=== PATIENT | male | born 2000 | race Two or more races ===

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

== ENCOUNTER 2020-09-04 15:28 | Emergency (ER) | payer MEDICAID ==
[~2020-09-04] VITALS: Ht 177.8 cm; Wt 113.4 kg
[~2020-09-04 15:28] MED LIST changes: +HYDROCODON-ACE1 EA15 ORAL
--- NOTE | 2020-09-04 15:48 | Emergency Room Report ---
History of Present Illness General Chief Complaint: General Complaint Source: Patient Present Illness HPI 20-year-old male presents to the emergency department requesting medical screening exam as he had exposure to a patient who was hospitalized 2 days ago for COVID-19 infection. Patient reports he has been taking care of his mother at home for the past 3 weeks to just yesterday needed to be hospitalized. Patient reports history of asthma he states he has been out of his inhaler for months. He denies cough, wheezing, shortness of breath, body aches or headaches. Patient reports he did feel hot on several occasions but did not measure temperature. He denies chills. Patient denies any other significant past medical history. He denies smoking history. Patient reports that he has been home with his brother and has not been going out anywhere in public. 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 COVID-19 Screening: PUI COVID-19 COVID-19 Testing Source: nasal Patient History Past Medical History: see triage record, asthma Past Surgical History: none Pertinent Family History: none Reviewed Nursing Documentation: PMH: Agreed; PSxH: Agreed Nursing Documentation-PMH Past Medical History: No Stated History Hx Cardiac Problems: No Review of Systems All Other Systems: negative except mentioned in HPI Physical Exam Vital Signs Date Time Temp Pulse Resp B/P (MAP) Pulse Ox O2 Delivery O2 Flow Rate FiO2 09/04/20 15:44 98.8 81 16 129/86 (100) 98 Room Air Sp02 EP Interpretation: reviewed, normal General Appearance: no apparent distress, alert, GCS 15, non-toxic Head: normocephalic, atraumatic Eyes: bilateral eye normal inspection, bilateral eye PERRL ENT: hearing grossly normal, normal voice, uvula midline, moist mucus membranes Neck: full range of motion, no meningismus Respiratory: chest non-tender, lungs clear, normal breath sounds, no rhonchi, no respiratory distress, no accessory muscle use, no wheezing, speaking full sentences Cardiovascular #1: regular rate, rhythm, normal capillary refill Cardiovascular #2: 2+ radial (R) Gastrointestinal: non tender, soft Musculoskeletal: normal range of motion, gait/station normal, non-tender Neurologic: alert, motor strength/tone normal, oriented x3, sensory intact, responsive, speech normal Psychiatric: judgement/insight normal Skin: no rash, normal color Lymphatic: no adenopathy Medical Decision Making PA Attestation Dr. Milton Is my supervising Physician whom patient management has been disc ussed with. Diagnostic Impression: Primary Impression: Close exposure to COVID-19 virus Additional Impression: Encounter for medical screening examination ER Course 20-year-old male presents to the emergency department requesting medical screening exam as he had exposure to a patient who was hospitalized 2 days ago for COVID-19 infection. Patient reports he has been taking care of his mother at home for the past 3 weeks to just yesterday needed to be hospitalized. Patient reports history of asthma he states he has been out of his inhaler for months. He denies cough, wheezing, shortness of breath, body aches or headaches. Patient reports he did feel hot on several occasions but did not measure temperature. He denies chills. Patient denies any other significant past medical history. He denies smoking history. Patient reports that he has been home with his brother and has not been going out anywhere in public. Ddx considered but are not limited to Viral syndrome, Viral GE, URI, pneumonia, PE, strep pharyngitis, meningitis, COVID-19 Vital signs: Pt. is afebrile, the remaining VS are WNL H&PE are most consistent with Normal limited medical screening exam, patient is nontoxic in appearance in no acute distress not currently showing any symptoms and does not demonstrate increased respiratory effort or other signs of respiratory distress at this time. ORDERS: none required at this time, the diagnosis is clinical ED INTERVENTIONS: None required at this time. --PT. EDUCATION: Discussed self quarantine at home for recommended time of 10 d ays in accordance with CDC guidelines and DP. Discussed with patient that they will receive a copy of instructions of how to self quarantine as well as how to treat mild symptoms at home should they arise. Discussed with patient signs and symptoms that would indicate prompt return to the emergency department. Pt. verbalizes understanding and agreement with proposed treatment plan as well as reasons for ED return. This patient was evaluated in the context of the global COVID-19 pandemic, which necessitated consideration that the patient might be at risk for infection with the SARS-COV-2 virus that causes COVID-19. Institutional protocols and algorithms that pertaining to the evaluation of patients at risk for COVID-19 are in a state of rapid change based on information released by multiple regulatory bodies including the CDC and federal and state organizations. These policies and algorithms were followed during the patient's care in the emergency department. DISCHARGE: At this time pt. is stable for d/c to home. Will provide printed patient care instructions, and any necessary prescriptions. Care plan and follow up instructions have been discussed with the patient prior to discharge. Last Vital Signs Date Time Temp Pulse Resp B/P (MAP) Pulse Ox O2 Delivery O2 Flow Rate FiO2 09/04/20 15:44 98.8 81 16 129/86 (100) 98 Room Air Disposition: HOME, SELF-CARE Condition: Stable Scripts Albuterol Sulfate* (Albuterol Sulfate Hfa*) 8.5 Gm Hfa.aer.ad 2 PUFF INH Q3H, #1 INH Prov: Suzanne Hernandez 09/04/20 Referrals: Celeste Villarreal [facility] Patient Instructions: Medical Screening Exam Additional Instructions: ~ ~ An emergent medical condition has not been identified based on this patients presentation, exam and any necessary testing/imaging. The patient is determined to be stable for outpatient follow-up and management of symptoms by a primary care provider. If you have been exposed to a person who is known to have the COVID-19 virus it is recommended that you self quarantine for 10 days. Following your exposure. You are to quarantine even if you are not currently having any infection symptoms. You are at risk of transmitting the virus to others. Follow up with a Primary Care Provider in 3-5 days, even if your symptoms have resolved. --Please review list of primary care clinics, if you do not already have a primary care provider,, CONSIDER OUTPATIENT NON-EMERGENT COVID-19 TESTING. Return sooner to ED if new symptoms occur, or current symptoms become worse. - Please note that this Emergency Department Report was dictated using [employer] technology software, occasionally this can lead to erroneous entry secondary to interpretation by the dictation equipment. Suzanne Hernandez Sep 04, 2020 15:48
[2020-09-04] MEDS ORDERED: ALBUTEROL SULF8.5 G1 INH (16:13)
--- NOTE | 2020-09-04 16:20 | NUR ---
ED Nurse Note: Pt cleared by health care Provider for discharge. DC instructions/prescription was given and explained to pt and verbalized understanding of teachings. All medical deviecs such as ID band removed. Pt is AAO x4, ambulatory and left with all personal belongings.
[2020-09-04 17:46] VITALS: BP 129/86
== END 2020-09-04 16:20 | disposition home or self-care (01) ==
LOC: EMR 16:11
DX: Z04.89 Encounter for examination and observation for other specified reasons (principal); Z20.828 Contact with and (suspected) exposure to other viral communicable diseases; J45.909 Unspecified asthma, uncomplicated
CPT/HCPCS: 99282